=== PATIENT | male | born 1935 | race Caucasian/White ===

== ENCOUNTER 2016-10-03 13:08 | Outpatient (CLI) | payer MEDICARE | END 2016-10-03 13:09 | disposition home or self-care (01) | DX: N28.9 Disorder of kidney and ureter, unspecified (principal) ==

== ENCOUNTER 2016-10-03 13:10 | Outpatient (CLI) | payer MEDICARE | END 2016-10-03 13:11 | disposition home or self-care (01) | DX: I48.2 Chronic atrial fibrillation (principal); Z79.01 Long term (current) use of anticoagulants; I10 Essential (primary) hypertension ==

== ENCOUNTER 2016-11-16 | Outpatient (CLI) | payer MEDICARE, OTHER | END 2016-11-16 23:31 | disposition E | CPT/HCPCS: A0425; A0429 ==